=== PATIENT | female | born 1990 | race American Indian/Alaskan Native ===

== ENCOUNTER 2019-09-24 05:30 | Emergency (ER) | payer SELFPAY ==
[2019-09-24 05:40] VITALS: BP 121/81
[2019-09-24 06:06] LABS: HCG Qualitative,Urine Negative (Negative)
[2019-09-24 06:18] LABS: Bilirubin,Urine NEG (Negative); Blood,Urine LG (Negative); Color,Urine Straw (Yellow); Protein,Urine <15 mg/dL mg/dL (Negative); Urobilinogen,Urine < 2.0 mg/dL (<2.0)
== END 2019-09-24 06:08 | disposition left against medical advice (07) ==
LOC: ED 05:30
DX: M54.5 Low back pain (principal); Z53.21 Procedure and treatment not carried out due to patient leaving prior to being seen by health care provider
CPT/HCPCS: 81001; 81025